=== PATIENT | male | born 1955 | race Caucasian/White ===

== ENCOUNTER → 2017-06-23 | Outpatient (CLI) | payer BC ==
[2017-06-25 00:10] LABS: TISSUE TRANSGLUTAMINASE IgA <2 U/mL (0-3)
== END ==
LOC: M LAB 10:12
DX: K90.0 Celiac disease (principal)
CPT/HCPCS: 86256

== ENCOUNTER → 2017-07-14 | Outpatient (CLI) | payer BC ==
[~2017-07-14] MED LIST: E-Z-PAQUE 96% w/w SUSP 176GM BTL As Ordered
== END ==
LOC: M RAD 07:51
DX: K90.0 Celiac disease (principal); K44.9 Diaphragmatic hernia without obstruction or gangrene; K57.10 Diverticulosis of small intestine without perforation or abscess without bleeding
CPT/HCPCS: 74250

== ENCOUNTER 2017-07-22 10:44 | Day surgery (SDC) | payer BC ==
[~2017-07-22 10:44] MED LIST changes: -E-Z-PAQUE 96% w/w SUSP 176GM BTL As Ordered; +PROPOFOL 200 MG/20 ML VIAL As Ordered
[2017-07-22] MEDS: NS 1,000 ML IV (11:04)
[2017-07-22] MEDS ORDERED: PROPOFOL 200 MG/20 ML VIAL As Ordered (13:05)
== END 2017-07-22 14:28 | disposition home or self-care (01) ==
LOC: M OPP 10:44
DX: Z12.11 Encounter for screening for malignant neoplasm of colon (principal); D12.2 Benign neoplasm of ascending colon; K64.8 Other hemorrhoids; K57.30 Diverticulosis of large intestine without perforation or abscess without bleeding; Z86.010 Personal history of colon polyps; K22.8 Other specified diseases of esophagus; K44.9 Diaphragmatic hernia without obstruction or gangrene; K31.7 Polyp of stomach and duodenum; K90.0 Celiac disease; I10 Essential (primary) hypertension; Z79.899 Other long term (current) drug therapy; Z91.018 Allergy to other foods
CPT/HCPCS: 45385

== ENCOUNTER 2022-10-16 09:04 | Day surgery (SDC) | payer MEDICARE ==
[~2022-10-16] VITALS: Ht 172.7 cm; Wt 69.8 kg
[~2022-10-16 09:04] MED LIST changes: +HYDR-3490 PO; +METO1TAB32 PO; +NS 1,000 ML IV ONE; +PRES10CA2 PO; -PROPOFOL 200 MG/20 ML VIAL As Ordered; +RA T500C2 PO
[2022-10-16] MEDS ORDERED: propofoL 200 MG/20 ML VIAL As Ordered ONE ×2 (10:36→10:45)
[2022-10-16 11:20] VITALS: BP 109/16
== END 2022-10-16 11:38 | disposition home or self-care (01) ==
LOC: M OPP 09:04
PROVIDERS: ATTEND Internal Medicine Gastroenterology
DX: Z86.010 Personal history of colon polyps (principal); K63.5 Polyp of colon; K64.8 Other hemorrhoids; K57.30 Diverticulosis of large intestine without perforation or abscess without bleeding; K63.89 Other specified diseases of intestine; Z79.899 Other long term (current) drug therapy